=== PATIENT | female | born 1955 | race Caucasian/White ===

== ENCOUNTER → 2016-07-26 | Outpatient (CLI) | payer OTHER ==
--- NOTE | 2016-07-27 10:02 | MM ---
Reason for exam: screening (asymptomatic). Last mammogram was performed 1 year and 2 months ago. History: Patient is postmenopausal. Benign excisional biopsy of the left breast, 2001. Took hormonal contraceptives for 20 years beginning at age 19. Took estrogen for 7 years beginning at age 43. Took progesterone for 7 years beginning at age 43. Physical Findings: A clinical breast exam by your physician is recommended on an annual basis and results should be correlated with mammographic findings. MG Screening Mammo w CAD Bilateral CC and MLO view(s) were taken. Prior study comparison: June 09, 2015, bilateral MG screening mammo w CAD. December 23, 2013, bilateral MG screening mammo w CAD. There are scattered fibroglandular densities. There is chronic nodularity in the left breast. ASSESSMENT: Benign, BI-RAD 2 RECOMMENDATION: Routine screening mammogram of both breasts in 1 year.
== END | disposition home or self-care (01) ==
LOC: RADMAMWWP 12:48
PROVIDERS: ATTEND Family Medicine
DX: Z12.31 Encounter for screening mammogram for malignant neoplasm of breast (principal)

== ENCOUNTER 2016-10-07 18:54 | Inpatient (IN) | payer OTHER ==
[2016-10-07] MEDS ORDERED: ONDANSETRON 4 MG/2 ML VIAL IVP STA (19:11)
[2016-10-07] MEDS ORDERED: HYDROmorphone 1 MG/ML 1 ML SYRINGE IVP STA (19:11)
[2016-10-07] MEDS ORDERED: RX INFO: IV CONTRAST WAS GIVEN 1 EACH MISC MISCELLANE PRN (19:11)
[2016-10-07] MEDS ORDERED: SODIUM CHLORIDE 0.9% 1,000 ML IV STA (19:11)
--- NOTE | 2016-10-07 19:16 | ED ---
General Adult HPI - General Source: patient, RN notes reviewed Mode of arrival: ambulatory Limitations: no limitations <Nina Walsh - Last Filed: 10/07/16 22:13> <Vignesh Garzon - Last Filed: 10/07/16 22:27> - General Chief complaint: Abdominal Pain Stated complaint: abdominal pain Time Seen by Provider: 10/07/16 19:04 - History of Present Illness Initial comments: 61 yo female presents to the ER with cc of nausea vomiting and abdominal pain. Patient has been having these symptoms starting this morning. We got worse. Patient states she has epigastric pain that radiates back worse with laying down. Patient denies any history of cholecystectomy or appendectomy. Dr. Lewis is her surgeon she has had a hiatal hernia repair. Patient states that she gets hot and cold with this. Patient states she's had multiple episodes of vomiting as well as diarrhea and no blood noted. Patient states this started her symptoms so she thought she should be seen. Patient denies any recent fever, chills, shortness of breath, chest pain, back pain, abdominal pain , nausea vomiting, numbness or tingling, dysuria or hematuria, constipation or diarrhea, headaches or visual changes, or any other current symptoms. (Nina Walsh) - Related Data Home Medications Medication Instructions Recorded Confirmed Nortriptyline HCl [Pamelor] 50 mg PO HS 02/10/15 10/07/16 Ezetimibe [Zetia] 10 mg PO HS 10/07/16 10/07/16 traZODone HCL 50 mg PO HS 10/07/16 10/07/16 Allergies Allergy/AdvReac Type Severity Reaction Status Date / Time No Known Allergies Allergy Verified 10/07/16 19:43 Review of Systems ROS Other: All systems not noted in ROS Statement are negative. <Nina Walsh - Last Filed: 10/07/16 22:13> ROS Other: All systems not noted in ROS Statement are negative. <Vignesh Garzon - Last Filed: 10/07/16 22:27> ROS Statement: Those systems with pertinent positive or pertinent negative responses have been documented in the HPI. Past Medical History Past Medical History: GERD/Reflux, Hyperlipidemia Additional Past Medical History / Comment(s): migraines, History of Any Multi-Drug Resistant Organisms: None Reported Past Surgical History: Breast Surgery, Section, Hernia Repair Additional Past Surgical History / Comment(s): left breast lumpectomy-benign. COLONOSCOPY Past Anesthesia/Blood Transfusion Reactions: Motion Sickness, Postoperative Nausea & Vomiting (PONV) Past Psychological History: No Psychological Hx Reported Smoking Status: Never smoker Past Alcohol Use History: None Reported Past Drug Use History: None Reported - Past Family History Mother Family Medical History: Dementia, Diabetes Mellitus Additional Family Medical History / Comment(s): Alzheimer's dementia Father Family Medical History: Cancer Additional Family Medical History / Comment(s): lymphoma <Nina Walsh - Last Filed: 10/07/16 22:13> General Exam Limitations: no limitations <Nina Walsh - Last Filed: 10/07/16 22:13> <Vignesh Garzon - Last Filed: 10/07/16 22:27> - General Exam Comments Initial Comments: General: The patient is awake and alert, in no distress, and does not appear acutely ill. Eye: Pupils are equal, round and reactive to light, extra-ocular movements are intact; there is normal conjunctiva bilaterally. No signs of icterus. Ears, nose, mouth and throat: There are moist mucous membranes. Neck: The neck is supple, there is no tenderness. Cardiovascular: There is a regular rate and rhythm. No murmur, rub or gallop is appreciated. Respiratory: Lungs are clear to auscultation, respirations are non-labored, breath sounds are equal. No wheezes, stridor, rales, or rhonchi. Gastrointestinal: Soft, non-distended, epigastric tenderness of the abdomen without masses or organomegaly noted. There is no rebound or guarding present. No CVA tenderness. Bowel sounds are unremarkable. Back: There is no tenderness to palpation in the midline. There is no obvious deformity. No rashes noted. Musculoskeletal: Normal ROM, no tenderness, There is no pedal edema. There is no calf tenderness or swelling. Sensation intact. Pulses equal bilaterally 2+. Neurological: CN II-XII intact, There are no obvious motor or sensory deficits. Coordination appears grossly intact. Speech is normal. Skin: Skin is warm and dry and no rashes or lesions are noted. Psychiatric: Cooperative, appropriate mood & affect, normal judgment. (Nina Walsh) EKG Findings - EKG Comments: EKG Findings:: normal sinus rhythm 71 bpm, normal axis, no atopy, no S-T depressions or elevations, <Nina Walsh - Last Filed: 10/07/16 22:13> Medical Decision Making - Lab Data Result diagrams: 10/07/16 19:59 10/07/16 19:59 - Radiology Data Radiology results: report reviewed, image reviewed <Nina Walsh - Last Filed: 10/07/16 22:13> - Lab Data Result diagrams: 10/07/16 19:59 10/07/16 19:59 <Vignesh Garzon - Last Filed: 10/07/16 22:27> - Medical Decision Making 61-year-old female presents emergency Department chief complaint of nausea vomiting diarrhea. At this time CAT scan does show acute cholecystitis. On- call surgeon Dr. Forbes was contacted he like a stat ultrasound. We will start Zosyn for the patient and repeat blood work in the morning. Continue pain medication and nausea medication. Patient is in agreement with plan. (Nina Walsh) Medical decision-making. This is a 61-year-old female who after eating a hotdog and severe epigastric and right upper quadrant pain. Labs within normal limits total bilirubin normal. AST ALT mildly elevated. CAT scan was done and reviewed by radiologist radiologist stated that patient had what appeared to be acute cholecystitis. The patient be placed on Zosyn. The case discussed with Dr. Muñoz on-call general surgeon. Examination finds a positive Jacques sign. Patient be admitted his service for further evaluation. Dr. Garzon (Vignesh Garzon) - Lab Data Lab Results 10/07/16 10/07/16 10/07/16 Range/Units 19:59 19:59 19:59 WBC 10.0 (3.8-10.6) k/uL RBC 5.27 (3.80-5.40) m/uL Hgb 15.5 (11.4-16.0) gm/dL Hct 48.3 H (34.0-46.0) % MCV 91.6 (80.0-100.0) fL MCH 29.4 (25.0-35.0) pg MCHC 32.1 (31.0-37.0) g/dL RDW 13.4 (11.5-15.5) % Plt Count 266 (150-450) k/uL Neutrophils % 84 % Lymphocytes % 10 % Monocytes % 4 % Eosinophils % 0 % Basophils % 1 % Neutrophils # 8.4 H (1.3-7.7) k/uL Lymphocytes # 1.0 (1.0-4.8) k/uL Monocytes # 0.4 (0-1.0) k/uL Eosinophils # 0.0 (0-0.7) k/uL Basophils # 0.1 (0-0.2) k/uL Sodium 144 (137-145) mmol/L Potassium 4.0 (3.5-5.1) mmol/L Chloride 106 (98-107) mmol/L Carbon Dioxide 24 (22-30) mmol/L Anion Gap 14 mmol/L BUN 16 (7-17) mg/dL Creatinine 0.70 (0.52-1.04) mg/dL Est GFR (MDRD) Af Amer >60 (>60 ml/min/1.73 sqM) Est GFR (MDRD) Non-Af >60 (>60 ml/min/1.73 sqM) Glucose 113 H (74-99) mg/dL Calcium 9.9 (8.4-10.2) mg/dL Total Bilirubin 0.6 (0.2-1.3) mg/dL AST 49 H (14-36) U/L ALT 78 H (9-52) U/L Alkaline Phosphatase 92 (38-126) U/L Total Creatine Kinase (30-135) U/L CK-MB (CK-2) (0.0-2.4) ng/mL CK-MB (CK-2) Rel Index Troponin I (0.000-0.034) ng/mL Total Protein 7.6 (6.3-8.2) g/dL Albumin 4.6 (3.5-5.0) g/dL Amylase 68 (30-110) U/L Lipase 266 (23-300) U/L Urine Color Yellow Urine Appearance Clear (Clear) Urine pH 5.0 (5.0-8.0) Ur Specific [place] 1.018 (1.001-1.035) Urine Protein 1+ H (Negative) Urine Glucose (UA) Negative (Negative) Urine Ketones Negative (Negative) Urine Blood Negative (Negative) Urine Nitrite Negative (Negative) Urine Bilirubin Negative (Negative) Urine Urobilinogen <2.0 (<2.0) mg/dL Ur Leukocyte Esterase Negative (Negative) Urine RBC <1 (0-5) /hpf Urine WBC 2 (0-5) /hpf Ur Squamous Epith Cells 2 (0-4) /hpf Calcium Oxalate Crystal Moderate H (None) /hpf Urine Bacteria Occasional H (None) /hpf Urine Mucus Rare H (None) /hpf 10/07/16 Range/Units 19:59 WBC (3.8-10.6) k/uL RBC (3.80-5.40) m/uL Hgb (11.4-16.0) gm/dL Hct (34.0-46.0) % MCV (80.0-100.0) fL MCH (25.0-35.0) pg MCHC (31.0-37.0) g/dL RDW (11.5-15.5) % Plt Count (150-450) k/uL Neutrophils % % Lymphocytes % % Monocytes % % Eosinophils % % Basophils % % Neutrophils # (1.3-7.7) k/uL Lymphocytes # (1.0-4.8) k/uL Monocytes # (0-1.0) k/uL Eosinophils # (0-0.7) k/uL Basophils # (0-0.2) k/uL Sodium (137-145) mmol/L Potassium (3.5-5.1) mmol/L Chloride (98-107) mmol/L Carbon Dioxide (22-30) mmol/L Anion Gap mmol/L BUN (7-17) mg/dL Creatinine (0.52-1.04) mg/dL Est GFR (MDRD) Af Amer (>60 ml/min/1.73 sqM) Est GFR (MDRD) Non-Af (>60 ml/min/1.73 sqM) Glucose (74-99) mg/dL Calcium (8.4-10.2) mg/dL Total Bilirubin (0.2-1.3) mg/dL AST (14-36) U/L ALT (9-52) U/L Alkaline Phosphatase (38-126) U/L Total Creatine Kinase 90 (30-135) U/L CK-MB (CK-2) 1.0 (0.0-2.4) ng/mL CK-MB (CK-2) Rel Index 1.1 Troponin I <0.012 (0.000-0.034) ng/mL Total Protein (6.3-8.2) g/dL Albumin (3.5-5.0) g/dL Amylase (30-110) U/L Lipase (23-300) U/L Urine Color Urine Appearance (Clear) Urine pH (5.0-8.0) Ur Specific [place] (1.001-1.035) Urine Protein (Negative) Urine Glucose (UA) (Negative) Urine Ketones (Negative) Urine Blood (Negative) Urine Nitrite (Negative) Urine Bilirubin (Negative) Urine Urobilinogen (<2.0) mg/dL Ur Leukocyte Esterase (Negative) Urine RBC (0-5) /hpf Urine WBC (0-5) /hpf Ur Squamous Epith Cells (0-4) /hpf Calcium Oxalate Crystal (None) /hpf Urine Bacteria (None) /hpf Urine Mucus (None) /hpf Disposition Time of Disposition: 22:14 Decision Date: 10/07/16 Decision Time: 22:14 <Nina Walsh - Last Filed: 10/07/16 22:13> <Vignesh Garzon - Last Filed: 10/07/16 22:27> Clinical Impression: Acute cholecystitis Disposition: ADMITTED IP TO THIS [facility] Condition: Stable Referrals: Neymar Perkins DO [Primary Care Provider] - 1-2 days
[2016-10-07 20:13] LABS: Basophils # (A) 0.1 k/uL (0-0.2); Basophils % (A) 1 %; CH 29.8; CHCM 32.6; Eosinophils % (A) 0 %; HCT 48.3 % (34.0-46.0); HDW 2.42; HGB 15.5 gm/dL (11.4-16.0); Luc # (Auto) 0.12; Luc % (Auto) 1; Lymphocytes % (A) 10 %; MCH 29.4 pg (25.0-35.0); MCHC 32.1 g/dL (31.0-37.0); MCV 91.6 fL (80.0-100.0); Mean Platelet Volume 8.1; Monocytes # (A) 0.4 k/uL (0-1.0); Monocytes % (A) 4 %; Neutrophils # (A) 8.4 k/uL (1.3-7.7); Neutrophils % (A) 84 %; RBC 5.27 m/uL (3.80-5.40); RDW 13.4 % (11.5-15.5); WBC (Perox) 9.56
[2016-10-07] MEDS ORDERED: DICYCLOMINE 10 MG/ML 2 ML AMP IM STA (20:15)
[2016-10-07 20:16] LABS: Appearance,Urine Clear (Clear); Bacteria,Urine Occasional /hpf; Bilirubin,Urine Negative (Negative); Calcium Oxalate Crystals,Urine Moderate /hpf; Glucose,Urine (UA) Negative (Negative); Ketones,Urine Negative (Negative); Leukocyte Esterase,Urine Negative (Negative); Mucus,Urine Rare /hpf; Nitrite,Urine Negative (Negative); Particle Count 3392; Protein,Urine 1+ (Negative); RBC,Urine <1 /hpf (0-5); Specific Gravity,Urine 1.018 (1.001-1.035); Squamous Epithelial Cell,Urine 2 /hpf (0-4); UA Billing (MACRO vs. MICRO) MICRO; Urobilinogen,Urine <2.0 mg/dL (<2.0); WBC,Urine 2 /hpf (0-5)
[2016-10-07 20:23] LABS: ALT 78 U/L (9-52); AST 49 U/L (14-36); Alkaline Phosphatase 92 U/L (38-126); Amylase 68 U/L (30-110); Anion Gap 14 mmol/L; Blood Urea Nitrogen 16 mg/dL (7-17); Calcium 9.9 mg/dL (8.4-10.2); Carbon Dioxide 24 mmol/L (22-30); Chloride 106 mmol/L (98-107); Glucose 113 mg/dL (74-99); Non-African American GFR(MDRD) >60 (>60 ml/min/1.73 sqM); Sodium 144 mmol/L (137-145); Total Bilirubin 0.6 mg/dL (0.2-1.3); Total Protein 7.6 g/dL (6.3-8.2)
[2016-10-07] MEDS ORDERED: FAMOTIDINE 20 MG/2 ML VIAL IV STA (20:51)
[2016-10-07 21:45] LABS: Creatine Kinase 90 U/L (30-135)
[2016-10-07 21:58] LABS: Troponin I <0.012 ng/mL (0.000-0.034)
--- NOTE | 2016-10-07 21:58 | CT ---
EXAMINATION TYPE: CT abdomen pelvis w con DATE OF EXAM: 10/07/2016 COMPARISON: NONE INDICATION: Rt flank pain DLP: 1692.00 mGycm, Automated exposure control for dose reduction was used. CONTRAST: 100 mL of Omnipaque 300. Study performed without Oral Contrast TECHNIQUE: Axial images were obtained from above the diaphragm to the pubic rami in the axial plane a t 5 mm thick sections. Reconstructed images are reviewed on the computer in the coronal plane. FINDINGS: Limited CT sections are obtained the lung bases. The lung bases are clear. CT ABDOMEN: Liver: Normal Spleen: Normal Pancreas: Somewhat atrophic. Adrenal glands: The adrenal glands are normal. Gallbladder: Gallbladder is distended. Some pericholecystic fluid appears to be present. Clinical cor relation recommended for cholecystitis. Gallstone is not excluded. This may be wall enhancement. Kidneys: No masses are evident. No hydronephrosis is present. No cysts are present. Delayed images were obtained through the kidneys, which remain unremarkable. Aorta: Vascular calcification is within the aorta. Inferior vena cava: Normal. CT PELVIS: Loops of bowel within the abdomen and pelvis are normal. Appendix: Normal as visualized. Urinary bladder: Normal. Genitourinary structures: Uterus and ovaries appear normal. No free fluid is within the pelvis. Osseous structures: No suspicious lytic or sclerotic lesions. IMPRESSIONS: 1. Findings suggestive for acute cholecystitis.
[2016-10-07] MEDS ORDERED: NALOXONE 0.4 MG/ML 1 ML VIAL IV PRN (22:15)
[2016-10-07] MEDS ORDERED: ONDANSETRON 4 MG/2 ML VIAL IVP PRN (22:15)
[2016-10-07] MEDS ORDERED: PIPERACILLIN-TAZOBACTAM 3.375 GM in DEXTROSE/WATER 1 50ML.BAG IVPB STA (22:16)
[2016-10-07] MEDS: SODIUM CHLORIDE 0.9% 1,000 ML IV SCH (22:39)
[2016-10-07 23:28] VITALS: RESP 16; BMI 26.6
[2016-10-07] MEDS: HYDROmorphone 1 MG/ML 1 ML SYRINGE IV PRN (23:48)
--- NOTE | 2016-10-07 23:51 | US ---
EXAM: US Abdomen Limited, Right Upper Quadrant CLINICAL HISTORY: Reason: Pain TECHNIQUE: Real-time ultrasound of the right upper quadrant with image documentation. COMPARISON: No relevant prior studies available. FINDINGS: Liver: Unremarkable. No mass. No intrahepatic bile duct dilation. Gallbladder: Cholelithiasis. Gallbladder wall thickening. Positive sonographic Jacques sign. No pericholecystic fluid. Common bile duct: Unremarkable as visualized. No stones. No dilation. Pancreas: Unremarkable as visualized. Right kidney: Unremarkable. No stones. No solid mass. No hydronephrosis. IMPRESSION: Findings indicative of acute cholecystitis.
[2016-10-08] MEDS: HYDROmorphone 1 MG/ML 1 ML SYRINGE IV PRN ×2 (04:30→14:33)
[2016-10-08 07:41] LABS: Basophils % (A) 0 %; CH 29.9; CHCM 32.7; Eosinophils % (A) 0 %; HCT 46.3 % (34.0-46.0); HDW 2.48; HGB 14.8 gm/dL (11.4-16.0); Luc # (Auto) 0.16; Luc % (Auto) 2; Lymphocytes # (A) 0.5 k/uL (1.0-4.8); Lymphocytes % (A) 5 %; MCH 29.5 pg (25.0-35.0); MCHC 32.1 g/dL (31.0-37.0); MCV 92.1 fL (80.0-100.0); Mean Platelet Volume 8.2; Monocytes # (A) 0.8 k/uL (0-1.0); Monocytes % (A) 8 %; Neutrophils # (A) 8.5 k/uL (1.3-7.7); Neutrophils % (A) 85 %; RBC 5.03 m/uL (3.80-5.40); RDW 13.7 % (11.5-15.5); WBC (Perox) 9.83
[2016-10-08 08:08] LABS: ALT 811 U/L (9-52); Alkaline Phosphatase 155 U/L (38-126); Anion Gap 8 mmol/L; Blood Urea Nitrogen 10 mg/dL (7-17); Calcium 8.9 mg/dL (8.4-10.2); Carbon Dioxide 23 mmol/L (22-30); Chloride 106 mmol/L (98-107); Glucose 136 mg/dL (74-99); Non-African American GFR(MDRD) >60 (>60 ml/min/1.73 sqM); Potassium 4.3 mmol/L (3.5-5.1); Sodium 137 mmol/L (137-145); Total Bilirubin 3.4 mg/dL (0.2-1.3); Total Protein 6.2 g/dL (6.3-8.2)
[2016-10-08 08:32] LABS: AST 1299 U/L (14-36)
[2016-10-08] MEDS: SODIUM CHLORIDE 0.9% 1,000 ML IV SCH ×2 (08:51→17:32)
[2016-10-08] MEDS: PIPERACILLIN-TAZOBACTAM 3.375 GM in DEXTROSE/WATER 1 50ML.BAG IVPB SCH ×3 (08:51→23:12)
[2016-10-08] MEDS: PANTOPRAZOLE 40 MG/10 ML VIAL IV SCH (09:03)
[2016-10-08 10:00] LABS: Bilirubin, Delta 1.4 mg/dL (0.0-0.2)
[2016-10-08] MEDS ORDERED: IV FLUID CONTINUATION 1,000 ML IV ONE ×3 (10:22→10:43)
[2016-10-08] MEDS ORDERED: BUPIVACAINE-EPI 0.5%-1:200,000 10 ML VIAL SQ ONE ×4 (10:22→12:07)
--- NOTE | 2016-10-08 10:35 | P.GSHP ---
History of Present Illness H&P Date: 10/08/16 Chief Complaint: right upper quadrant PAtient presents with 1 day history of worsening abdominal pain that was localized in the righ upper quadrant without radiation or imaging it is associated with nausea but no vomiting there is no diarrhea or constipation. Patient's pain is improved with pain medication is worse moving about. She's not had any subsequent pain in the past. His no history of fever or rigors or shaking chills. - Constitutional Constitutional: Reports anorexia, Reports poor appetite - EENT Ears: deny: decreased hearing Ears, nose, mouth and throat: Denies dysphagia - Cardiovascular Cardiovascular: Denies chest pain, Denies claudication, Denies decreased exercise tolerance, Denies dyspnea on exertion - Respiratory Respiratory: Denies congestion, Denies cough - Gastrointestinal Gastrointestinal: Reports as per HPI, Reports abdominal pain - Genitourinary (Female) Genitourinary: Denies dysuria, Denies hematuria - Musculoskeletal Musculoskeletal: Denies myalgias - Integumentary Integumentary: Denies pruritus, Denies rash - Neurological Neurological: Denies numbness, Denies weakness - Endocrine Endocrine: Denies fatigue, Denies weight change - Hematologic/Lymphatic Hematologic/Lymphatic: Denies as per HPI, Denies easy bleeding, Denies easy bruising, Denies lymphadenopathy, Denies lymphedema, Denies thrombophilia - Allergic/Immunologic Allergic/Immunologic: Denies as per HPI, Denies allergic rhinitis, Denies anaphylaxis, Denies angioedema, Denies gluten intolerance, Denies persistent infections, Denies seasonal allergies, Denies urticaria, Denies wheezing Past Medical History Past Medical History: GERD/Reflux, Hyperlipidemia Additional Past Medical History / Comment(s): migraines, History of Any Multi-Drug Resistant Organisms: None Reported Past Surgical History: Breast Surgery, Section, Hernia Repair Additional Past Surgical History / Comment(s): left breast lumpectomy-benign. COLONOSCOPY Past Anesthesia/Blood Transfusion Reactions: Motion Sickness, Postoperative Nausea & Vomiting (PONV) Past Psychological History: No Psychological Hx Reported Smoking Status: Never smoker Past Alcohol Use History: None Reported Past Drug Use History: None Reported - Past Family History Mother Family Medical History: Dementia, Diabetes Mellitus Additional Family Medical History / Comment(s): Alzheimer's dementia Father Family Medical History: Cancer Additional Family Medical History / Comment(s): lymphoma Medications and Allergies Home Medications Medication Instructions Recorded Confirmed Type Nortriptyline HCl [Pamelor] 50 mg PO HS 02/10/15 10/07/16 History Ezetimibe [Zetia] 10 mg PO HS 10/07/16 10/07/16 History traZODone HCL 50 mg PO HS 10/07/16 10/07/16 History Allergies Allergy/AdvReac Type Severity Reaction Status Date / Time No Known Allergies Allergy Verified 10/07/16 19:43 Surgical - Exam Vital Signs Temp Pulse Resp BP Pulse Ox 97.4 F L 76 20 182/83 98 10/07/16 18:59 10/07/16 18:59 10/07/16 18:59 10/07/16 18:59 10/07/16 18:59 - General well developed, well nourished - Eyes PERRL, normal ocular movement, no icteric - ENT normal pinna, normal nares - Neck no masses, trachea midline - Respiratory normal expansion, normal respiratory effort - Cardiovascular Rhythm: regular - Abdomen tener in right upper quadrant Abdomen: soft, tender, surgical scars - Integumentary no rash, no growths - Neurologic no disoriented, no combative - Musculoskeletal normal posture - Psychiatric oriented to time, oriented to person, oriented to place, speech is normal, memory intact Results - Labs 10/08/16 06:40 10/08/16 06:40 Abnormal Lab Results - Last 24 Hours (Table) 10/07/16 10/07/16 10/07/16 Range/Units 19:59 19:59 19:59 Hct 48.3 H (34.0-46.0) % Neutrophils # 8.4 H (1.3-7.7) k/uL Lymphocytes # (1.0-4.8) k/uL Glucose 113 H (74-99) mg/dL Total Bilirubin (0.2-1.3) mg/dL Conjugated Bilirubin (0.0-0.3) mg/dL Delta Bilirubin (0.0-0.2) mg/dL AST 49 H (14-36) U/L ALT 78 H (9-52) U/L Alkaline Phosphatase (38-126) U/L Total Protein (6.3-8.2) g/dL Urine Protein 1+ H (Negative) Calcium Oxalate Crystal Moderate H (None) /hpf Urine Bacteria Occasional H (None) /hpf Urine Mucus Rare H (None) /hpf 10/08/16 10/08/16 Range/Units 06:40 06:40 Hct 46.3 H (34.0-46.0) % Neutrophils # 8.5 H (1.3-7.7) k/uL Lymphocytes # 0.5 L (1.0-4.8) k/uL Glucose 136 H (74-99) mg/dL Total Bilirubin 3.4 H (0.2-1.3) mg/dL Conjugated Bilirubin 1.2 H (0.0-0.3) mg/dL Delta Bilirubin 1.4 H (0.0-0.2) mg/dL AST 1299 H (14-36) U/L ALT 811 H (9-52) U/L Alkaline Phosphatase 155 H (38-126) U/L Total Protein 6.2 L (6.3-8.2) g/dL Urine Protein (Negative) Calcium Oxalate Crystal (None) /hpf Urine Bacteria (None) /hpf Urine Mucus (None) /hpf Diabetes panel 10/07/16 10/08/16 Range/Units 19:59 06:40 Sodium 144 137 (137-145) mmol/L Potassium 4.0 4.3 (3.5-5.1) mmol/L Chloride 106 106 (98-107) mmol/L Carbon Dioxide 24 23 (22-30) mmol/L BUN 16 10 (7-17) mg/dL Creatinine 0.70 0.56 (0.52-1.04) mg/dL Glucose 113 H 136 H (74-99) mg/dL Calcium 9.9 8.9 (8.4-10.2) mg/dL AST 49 H 1299 H (14-36) U/L ALT 78 H 811 H (9-52) U/L Alkaline Phosphatase 92 155 H (38-126) U/L Total Protein 7.6 6.2 L (6.3-8.2) g/dL Albumin 4.6 3.7 (3.5-5.0) g/dL Calcium panel 10/07/16 10/08/16 Range/Units 19:59 06:40 Calcium 9.9 8.9 (8.4-10.2) mg/dL Albumin 4.6 3.7 (3.5-5.0) g/dL Pituitary panel 10/07/16 10/08/16 Range/Units 19:59 06:40 Sodium 144 137 (137-145) mmol/L Potassium 4.0 4.3 (3.5-5.1) mmol/L Chloride 106 106 (98-107) mmol/L Carbon Dioxide 24 23 (22-30) mmol/L BUN 16 10 (7-17) mg/dL Creatinine 0.70 0.56 (0.52-1.04) mg/dL Glucose 113 H 136 H (74-99) mg/dL Calcium 9.9 8.9 (8.4-10.2) mg/dL Adrenal panel 10/07/16 10/08/16 Range/Units 19:59 06:40 Sodium 144 137 (137-145) mmol/L Potassium 4.0 4.3 (3.5-5.1) mmol/L Chloride 106 106 (98-107) mmol/L Carbon Dioxide 24 23 (22-30) mmol/L BUN 16 10 (7-17) mg/dL Creatinine 0.70 0.56 (0.52-1.04) mg/dL Glucose 113 H 136 H (74-99) mg/dL Calcium 9.9 8.9 (8.4-10.2) mg/dL Total Bilirubin 0.6 3.4 H (0.2-1.3) mg/dL AST 49 H 1299 H (14-36) U/L ALT 78 H 811 H (9-52) U/L Alkaline Phosphatase 92 155 H (38-126) U/L Total Protein 7.6 6.2 L (6.3-8.2) g/dL Albumin 4.6 3.7 (3.5-5.0) g/dL - Imaging CT scan - abdomen: report reviewed, image reviewed US - abdomen: report reviewed, image reviewed (Acute cholecystitis with cholecystiis. USG doesd mpt sjpw amu dilation of CBD.) Assessment and Plan (1) Acute cholecystitis Status: Acute (2) Hiatal hernia Status: Acute Plan: PAtient has acute cholecystitis with cholelithiasis. SInce the billirubin levels increased overnight , in the absence of dilation of CBD on ultrasound the hyperbillirubinemia may be transient or bad gall bladder disease. I have recommended a laparoscopic possible open cholecystectomy with cholangiogram/ exploration. The risks and the benefits had been explained. She understands and is willing to proceed.
[2016-10-08] MEDS ORDERED: SCOPOLAMINE 1.5MG/72HR PATCH TRANSDERM ONE ×2 (10:47→14:14)
[2016-10-08] MEDS ORDERED: DEXAMETHASONE SOD PHOSPHATE 10 MG/ML 1 ML VIAL IV ONE ×2 (10:47→14:14)
[2016-10-08] MEDS ORDERED: ONDANSETRON 4 MG/2 ML VIAL IVP ONE ×2 (10:47→14:14)
[2016-10-08] MEDS ORDERED: LIDOCAINE 1% INJ 10MG/ML (20 ML MDV) ONE (11:35)
[2016-10-08] MEDS ORDERED: fentaNYL (PF) 50 MCG/ML 2 ML AMP ONE (11:35)
[2016-10-08] MEDS ORDERED: NEOSTIGMINE 1 MG/ML 10 ML VIAL ONE (11:35)
[2016-10-08] MEDS ORDERED: DEXAMETHASONE SOD PHOS (MDV) 100 MG/10 ML VIAL ONE (11:35)
[2016-10-08] MEDS ORDERED: GLYCOPYRROLATE 0.2 MG/ML 2 ML VIAL ONE (11:35)
[2016-10-08] MEDS ORDERED: MIDAZOLAM 2 MG/2 ML VIAL ONE (11:35)
[2016-10-08] MEDS ORDERED: ROCURONIUM BROMIDE 10 MG/ML 10 ML VIAL IV ONE (11:35)
[2016-10-08] MEDS ORDERED: SUCCINYLCHOLINE CHLORIDE 100 MG/5 ML SYR IV ONE (11:35)
[2016-10-08] MEDS ORDERED: KETOROLAC 30 MG/ML 1 ML VIAL ONE (11:35)
[2016-10-08] MEDS ORDERED: PROPOFOL 10 MG/ML 20 ML VIAL IV ONE (11:35)
[2016-10-08] MEDS ORDERED: LACTATED RINGERS 1,000 ML IV ONE (12:00)
--- NOTE | 2016-10-08 13:10 | P.OP ---
Date of Procedure: 10/08/16 Preoperative Diagnosis: Acute cholecystitis Postoperative Diagnosis: Acute gangrenous cholecystitis Procedure(s) Performed: Laparoscopic cholecystectomy Implants: Anesthesia: QUIQUE Surgeon: Melvin Muñoz Pathology: other Condition: stable Disposition: PACU Indications for Procedure: Operative Findings: Acute gangrenous cholecystitis was extensive inflammatory adhesions. Description of Procedure: The patient is a 61-year-old female who presented with epigastric and upper abdominal pain which localized in the right upper quadrant was tender with guarding in the right upper quadrant elevated white count and an ultrasound suggested cholelithiasis. Clinical diagnosis of acute cholecystitis was made. The risks benefits and possible complications of the procedure were discussed in detail and informed consent was obtained. The ultrasound did not show any CBD dilatation or hyperbilirubinemia on labs initially but the second set of labs that show hyperbilirubinemia and elevated liver labs. Because of the new labs I did recommend a possible intraoperative cholangiogram if the ducts looked abnomral. Informed consent was also obtained for that. Patient was identified in the preop operating holding area questions were answered and she was taken back to the operating room where she was placed in the supine position. She was given general anesthesia with endotracheal intubation followed by the placement of an orogastric and an appropriate timeout was called the indication procedure ALLERGIES medications from her prophylaxis were all discussed. Abdomen is prepped and draped in the usual sterile surgical fashion subumbilical region was infiltrated with quarter percent with local anesthesia and incision was made with 11 blade and Veress needle was introduced and abdomen was insufflated to 15 mmHg. Once that was done a 10 mm LUQ port and two 5 mm right upper quadrant ports were placed.the gallbladder was retracted cephalad and superiorly.The fundus was retracted so as to make the Calot's triangle more visible. There were extensive inflammatory peritoneal adhesions and the gallbladder was distended. The gallbladder was initially decompressed with the help of a needle removing approximately 50 mL of bile. The retraction did lead to another inadvertent hole in the body of the fundus which also drained a lot of bile. The wall of the entire gallbladder was mottling and progressing towards necrosis consistent with gangrenous cholecystitis. It was really friable. The adhesions were taken down with the help of blunt dissection and using some electrocautery, skeletonizing the cystic duct and the multiple branches of the cystic artery. Cystic duct was clipped proximally and distally followed by clipping of the branches of the cystic artery following which they were transected sharply with the help of the sara. The gallbladder was then taken off the gallbladder fossa with the help of electrocautery and placed in an Endo Catch bag and removed through the 10 m port site after dilating the port site with a Mackenzie. The port was replaced and the gallbladder fossa was inspected and hemostasis was secured with the help of electrocautery the abdomen was thoroughly irrigated and sucked dry. A 19- Portuguese channel drain was brought out through the right-sided port and placed in the subhepatic fossa. It was secured with 3 and nylon. [place] were noted to be in the appropriate position at this time to take procedure was terminated. the 10 mm port was removed and the port site was closed with the help of a Gordon Messer using 0 Vicryl.The Gas was shut off and all the 5 mm ports were removed. The abdomen was thoroughly desufflated. The remaining local anesthesia was infiltrated into the incisions and the incisions were closed with the help of 4-0 Monocryl and dermabond was applied. The patient was extubated and taken to recovery room in stable condition the orogastric tube was removed prior to extubation. There were no complications.
[2016-10-08] MEDS ORDERED: LACTATED RINGERS 1,000 ML IV SCH (14:14)
[2016-10-08] MEDS ORDERED: HYDROmorphone 1 MG/ML 1 ML SYRINGE IVP PRN (14:14)
[2016-10-08] MEDS: HYDROcodone/APAP 5-325MG 1 EACH TAB PO PRN ×2 (19:43→23:16)
[2016-10-08] MEDS ORDERED: traZODone HCL 50 MG TAB PO SCH (21:00)
[2016-10-08] MEDS ORDERED: EZETIMIBE 10 MG TAB PO SCH (21:00)
[2016-10-08] MEDS ORDERED: NORTRIPTYLINE 25 MG CAP PO SCH (21:00)
[2016-10-09] MEDS: HYDROcodone/APAP 5-325MG 1 EACH TAB PO PRN (05:04)
[2016-10-09 07:18] LABS: Basophils % (A) 0 %; CH 29.2; CHCM 32.5; Eosinophils % (A) 0 %; HCT 39.2 % (34.0-46.0); HDW 2.52; HGB 12.9 gm/dL (11.4-16.0); Luc # (Auto) 0.15; Luc % (Auto) 1; Lymphocytes # (A) 0.6 k/uL (1.0-4.8); Lymphocytes % (A) 5 %; MCH 29.7 pg (25.0-35.0); MCHC 32.9 g/dL (31.0-37.0); MCV 90.2 fL (80.0-100.0); Mean Platelet Volume 7.8; Monocytes # (A) 0.8 k/uL (0-1.0); Monocytes % (A) 7 %; Neutrophils # (A) 10.1 k/uL (1.3-7.7); Neutrophils % (A) 87 %; RBC 4.34 m/uL (3.80-5.40); WBC 11.7 k/uL (3.8-10.6); WBC (Perox) 11.34
[2016-10-09 07:27] LABS: ALT 468 U/L (9-52); AST 247 U/L (14-36); Alkaline Phosphatase 151 U/L (38-126); Anion Gap 7 mmol/L; Blood Urea Nitrogen 9 mg/dL (7-17); Calcium 8.6 mg/dL (8.4-10.2); Carbon Dioxide 22 mmol/L (22-30); Chloride 110 mmol/L (98-107); Glucose 93 mg/dL (74-99); Non-African American GFR(MDRD) >60 (>60 ml/min/1.73 sqM); Sodium 139 mmol/L (137-145); Total Bilirubin 1.3 mg/dL (0.2-1.3); Total Protein 5.1 g/dL (6.3-8.2)
[2016-10-09] MEDS: PANTOPRAZOLE 40 MG/10 ML VIAL IV SCH (07:44)
[2016-10-09] MEDS: PIPERACILLIN-TAZOBACTAM 3.375 GM in DEXTROSE/WATER 1 50ML.BAG IVPB SCH (07:44)
--- NOTE | 2016-10-09 08:34 | P.PN ---
Subjective A 61-year-old being seen on rounds. Currently is sitting up in bed taking a full liquid diet tolerating reports no nausea vomiting. States urinating no difficulty no stool. Patient is postop on October 08 laparoscopic cholecystectomy for acute gangrenous cholecystitis. Patient initially presented to the emergency room with a chief complaint of having nausea vomiting with abdominal pain patient stated the symptoms started early in the morning and continue to persist. Patient stated was in the epigastric area radiated to the back seem to be worse with lying down. Patient has no history of a cholecystectomy or appendectomy. Patient has seen Dr. Jackelin soria in the past and has had a hiatal hernia repair done. Patient stated that she has multiple episodes of feeling nauseated and vomited subsequently came into the emergency room for the above-mentioned symptoms in the emergency room a CAT scan of the abdomen did show acute cholecystitis. The white count is 10. Patient was admitted the surgical eval. Patient did see Dr. Muñoz. Patient elected to undergo surgical procedure on October 08 laparoscopic cholecystectomy Objective - Vital Signs Vital signs: Vital Signs Temp 97.3 F L 10/09/16 07:22 Pulse 86 10/09/16 07:22 Resp 16 10/09/16 02:30 BP 112/59 10/09/16 07:22 Pulse Ox 97 10/09/16 07:22 Intake & Output 10/08/16 10/09/16 10/09/16 18:59 06:59 18:59 Intake Total 500 1580 Output Total 65 650 Balance 435 930 Intake: IV 500 Intake, IV Titration 600 Amount Piperacillin-Tazobactam 3 600 .375 gm In Dextrose/Water 1 50ml.bag @ 12.5 mls/hr IVPB Q8HR [facility] Rx#: [id number] Oral 980 Output: Drainage 60 50 Right Abdomen 60 50 Urine 600 Estimated Blood Loss 5 Other: Voiding Method Toilet # Voids 1 - Exam GENERAL APPEARANCE: 61-year-old female patient is alert, oriented, in no acute distress. Sitting up in bed taking a full liquid diet VITAL SIGNS: Reviewed HEENT: Head is normocephalic and atraumatic. Pupils are equal and reactive. The nares are patent. Oropharynx is clear without lesions. NECK: Supple without lymphadenopathy. Traches midline. HEART: S1, S2. Regular rate and rhythm denying chest pain. LUNGS: No crackles or wheezes are heard. On room air sats greater than 95% no shortness of breath ABDOMEN: Soft, dressing to the surgical sites dry slight surgical tenderness . nondistended with good bowel sounds. No peritoneal signs. No palpable organomegaly or masses. Sivakumar-Valdivia drain in place right lower quadrant bowel tones present reports no nausea vomiting no stool is not passing gas rectally EXTREMITIES: Normal skin color and turgor. No cyanosis, rash, ulceration, clubbing or edema. Radial pedal pulses are 2/4 bilaterally. NEUROLOGICAL: No focal deficits. Strength and sensation are grossly intact. - Labs CBC & Chem 7: 10/09/16 06:48 10/09/16 06:48 Labs: Abnormal Lab Results - Last 24 Hours (Table) 10/08/16 10/09/16 10/09/16 Range/Units 06:40 06:48 06:48 WBC 11.7 H (3.8-10.6) k/uL Neutrophils # 10.1 H (1.3-7.7) k/uL Lymphocytes # 0.6 L (1.0-4.8) k/uL Chloride 110 H (98-107) mmol/L Glucose 136 H (74-99) mg/dL Total Bilirubin 3.4 H (0.2-1.3) mg/dL Conjugated Bilirubin 1.2 H (0.0-0.3) mg/dL Delta Bilirubin 1.4 H (0.0-0.2) mg/dL AST 1299 H 247 H (14-36) U/L ALT 811 H 468 H (9-52) U/L Alkaline Phosphatase 155 H 151 H (38-126) U/L Total Protein 6.2 L 5.1 L (6.3-8.2) g/dL Albumin 2.8 L (3.5-5.0) g/dL Assessment and Plan Plan: Impression Present on admission nausea vomiting abdominal pain right upper quadrant suspect due to acute cholecystitis Postop October 08 laparoscopic cholecystectomy for acute gangrenous cholecystitis Operative findings showed acute gangrenous cholecystitis with extensive inflammatory adhesions History of a hiatal hernia Plan Continue postop surgical care as ordered Pain control IV antibiotic Zosyn as ordered every 8 hours Increase activity DVT and GI prophylaxis advance diet to full liquid The above impression and plan of care have been discussed and directed by signing physician. Kaleigh Decker nurse practitioner acting as scribe for signing physician.
[2016-10-09 14:46] VITALS: BP 114/87; PULSE 72; TEMP 97.5
--- NOTE | 2016-10-09 14:52 | P.DS ---
Providers Date of admission: 10/07/16 22:27 Expected date of discharge: 10/09/16 Attending physician: Melvin Muñoz Primary care physician: Neymra [place] Hospital Course: Patient initially presented to the emergency room with a chief complaint of having nausea vomiting with abdominal pain patient stated the symptoms started early in the morning and continue to persist. Patient stated was in the epigastric area radiated to the back seem to be worse with lying down. Patient has no history of a cholecystectomy or appendectomy. Patient has seen Dr. Jackelin soria in the past and has had a hiatal hernia repair done. Patient stated that she has multiple episodes of feeling nauseated and vomited subsequently came into the emergency room for the above-mentioned symptoms in the emergency room a CAT scan of the abdomen did show acute cholecystitis. The white count was 10. Patient was admitted to the surgical service seen by Dr. Muñoz. Patient elected to undergo surgical procedure on October 08 laparoscopic cholecystectomy There were no postop events and on the day of discharge patient was felt to be hemodynamically stable and appropriate proceed Impression Present on admission nausea vomiting abdominal pain right upper quadrant suspect due to acute cholecystitis Postop October 08 laparoscopic cholecystectomy for acute gangrenous cholecystitis Operative findings showed acute gangrenous cholecystitis with extensive inflammatory adhesions History of a hiatal hernia the above impression and plan of care have been discussed and directed by signing physician. Kaleigh Decker nurse practitioner acting as scribe for signing physician. Patient Condition at Discharge: Stable Plan - Discharge Summary New Discharge Prescriptions: New Amoxicillin/Potassium Clav [Augmentin 875-125 Tablet] 1 tab PO Q12HR #20 tab Hydrocodone/Acetaminophen [[place] 5-325] 1 tab PO Q4HR PRN #15 tab PRN Reason: Mild To Moderate Pain Ibuprofen [Motrin] 800 mg PO Q4H #30 tab Continue Nortriptyline HCl [Pamelor] 50 mg PO HS traZODone HCL 50 mg PO HS Ezetimibe [Zetia] 10 mg PO HS Discharge Medication List Nortriptyline HCl [Pamelor] 50 mg PO HS 02/10/15 [History] Ezetimibe [Zetia] 10 mg PO HS 10/07/16 [History] traZODone HCL 50 mg PO HS 10/07/16 [History] Amoxicillin/Potassium Clav [Augmentin 875-125 Tablet] 1 tab PO Q12HR #20 tab [Rx] Hydrocodone/Acetaminophen [[place] 5-325] 1 tab PO Q4HR PRN #15 tab 10/09/16 [Rx] Ibuprofen [Motrin] 800 mg PO Q4H #30 tab 10/09/16 [Rx] Follow up Appointment(s)/Referral(s): [facility], [NON-STAFF] - Neymar Perkins DO [Primary Care Provider] - 1-2 days Melvin Muñoz MD [STAFF PHYSICIAN] - 1 Week Activity/Diet/Wound Care/Special Instructions: No lifting over 10 pounds May shower daily No tub bath no pool for at least one week Notify the attending surgeon Dr. Muñoz if any redness at the surgical sites or fever chills Patient provided with instructions on care of the Sivakumar-Valdivia drain Discharge Disposition: HOME WITH HOME HEALTH SERVICES
== END 2016-10-09 16:53 | disposition home health service (06) | DRG 419 ==
LOC: EC 18:54 → 3SUR 22:27
PROVIDERS: ADMIT Surgery; ATTEND Surgery
PROC: 0DNW4ZZ Release Peritoneum, Percutaneous Endoscopic Approach (ICD-10-PCS; 2016-10-08)
PROC: 0FT44ZZ Resection of Gallbladder, Percutaneous Endoscopic Approach (ICD-10-PCS; principal; 2016-10-08 09:44)
DX: K80.00 Calculus of gallbladder with acute cholecystitis without obstruction (principal); E78.5 Hyperlipidemia, unspecified; K66.0 Peritoneal adhesions (postprocedural) (postinfection); K21.9 Gastro-esophageal reflux disease without esophagitis; K44.9 Diaphragmatic hernia without obstruction or gangrene; G43.909 Migraine, unspecified, not intractable, without status migrainosus; Z79.899 Other long term (current) drug therapy
CPT/HCPCS: 36415; 74177; 76705; 80053; 81001; 82150; 82248; 82550; 82553; 83690; 84484; 85025; 88304; 93005; 96361; 96365; 96372; 96375; 99285

== ENCOUNTER → 2017-10-16 | Outpatient (CLI) | payer OTHER ==
--- NOTE | 2017-10-17 12:09 | MM ---
Reason for exam: screening (asymptomatic). Last mammogram was performed 1 year and 3 months ago. History: Patient is postmenopausal. Benign excisional biopsy of the left breast, 2001. Took hormonal contraceptives for 20 years beginning at age 19. Took estrogen for 7 years beginning at age 43. Took progesterone for 7 years beginning at age 43. Physical Findings: A clinical breast exam by your physician is recommended on an annual basis and results should be correlated with mammographic findings. MG 3D Screening Mammo W/Cad Bilateral CC and MLO view(s) were taken. Prior study comparison: July 26, 2016, bilateral MG screening mammo w CAD. June 09, 2015, bilateral MG screening mammo w CAD. There are scattered fibroglandular densities. There is chronic nodularity in the left breast. No significant changes when compared with prior studies. ASSESSMENT: Benign, BI-RAD 2 RECOMMENDATION: Routine screening mammogram of both breasts in 1 year.
== END | disposition home or self-care (01) ==
LOC: RADMAMWWP 06:55
PROVIDERS: ATTEND Family Medicine
DX: Z12.31 Encounter for screening mammogram for malignant neoplasm of breast (principal)
CPT/HCPCS: 77063; 77067